=== PATIENT | male | born 1965 | race Caucasian/White ===

== ENCOUNTER 2020-08-29 13:43 | Emergency (ER) | payer MEDICARE ==
[~2020-08-29 13:43] MED LIST: ALPRAZOLAM0.5 MG PO; ASPIRIN81 MG PO; COREG 25MG TAB25 MG PO; ENTECAVIR0.5 MG PO; HYDRALAZINE HCL25 MG PO; IMDUR ER TAB 3030 MG PO; LASIX20 MG PO; LIPITOR TAB 2020 MG PO; LOMOTIL 2.5-0.1 EACH PO; NORCO 5-325 TA1 EACH PO; ZOFRAN4 MG PO
[2020-08-29] MEDS ORDERED: CYCLOBENZAPRINE10 MG PO (15:11)
== END 2020-08-29 15:34 | disposition home or self-care (01) ==
LOC: ER1 13:43
DX: S39.012A Strain of muscle, fascia and tendon of lower back, initial encounter (principal); I11.0 Hypertensive heart disease with heart failure; I50.9 Heart failure, unspecified; E78.00 Pure hypercholesterolemia, unspecified; Z85.038 Personal history of other malignant neoplasm of large intestine; Z79.899 Other long term (current) drug therapy; Z79.82 Long term (current) use of aspirin; F17.200 Nicotine dependence, unspecified, uncomplicated; Z88.8 Allergy status to other drugs, medicaments and biological substances; X50.0XXA Overexertion from strenuous movement or load, initial encounter
CPT/HCPCS: 72100; 81001; 82962; 99283

== ENCOUNTER 2021-03-23 10:44 | Inpatient (IN) | payer MEDICARE, MEDICAID ==
[~2021-03-23] VITALS: Ht 193 cm; Wt 113.1 kg
[~2021-03-23 10:44] MED LIST changes: +CYCLOBENZAPRINE10 MG PO; -HYDRALAZINE HCL25 MG PO; +HYDRALAZINE HCL50 MG PO; -IMDUR ER TAB 3030 MG PO; +ISOSORBIDE MONO60 MG PO
[2021-03-23 12:28] LABS: HEMOGLOBIN 16.8 gm/dl (14.0-17.5); RED BLOOD COUNT 5.3 M/UL (4.20-5.50); WHITE BLOOD COUNT 9.6 K/UL (4.5-11.0)
[2021-03-23 13:43] LABS: BUN/CREATININE RATIO 15 (0-10)
[2021-03-23] MEDS ORDERED: GABAPENTIN600 MG PO (14:45)
[2021-03-23] MEDS ORDERED: MIRTAZAPINE45 MG PO (14:46)
[2021-03-23] MEDS ORDERED: VITAMIN D21250 MCG PO (15:03)
[2021-03-24 04:48] LABS: HEMOGLOBIN 14.9 gm/dl (14.0-17.5)
[2021-03-24 04:49] LABS: RED BLOOD COUNT 4.74 M/UL (4.20-5.50)
[2021-03-24] MEDS ORDERED: METER-CHECK1 EACH MC (11:15)
[2021-03-24] MEDS ORDERED: LANTUS SOL100 UNIT/1 SQ (11:15)
[2021-03-24] MEDS ORDERED: ZESTRIL 40 MG T40 MG PO (11:15)
[2021-03-24] MEDS ORDERED: INSULIN AS100 UNIT/3 SQ (11:15)
[2021-03-24] MEDS ORDERED: GLUCOPHAGE 500500 MG PO (11:15)
== END 2021-03-24 17:20 | disposition home or self-care (01) | DRG 638 ==
LOC: ER1 10:44 → PROG CARE 14:33 → CDU 14:33 → PROG CARE 14:39
PROVIDERS: Physician Assistant; ADMIT Internal Medicine
DX: E11.65 Type 2 diabetes mellitus with hyperglycemia (principal); I13.0 Hypertensive heart and chronic kidney disease with heart failure and stage 1 through stage 4 chronic kidney disease, or unspecified chronic kidney disease; Z20.822 Contact with and (suspected) exposure to COVID-19; N17.9 Acute kidney failure, unspecified; N18.4 Chronic kidney disease, stage 4 (severe); E87.2 Acidosis; E11.649 Type 2 diabetes mellitus with hypoglycemia without coma; H53.8 Other visual disturbances; R63.1 Polydipsia; E78.5 Hyperlipidemia, unspecified; I50.9 Heart failure, unspecified; Z79.4 Long term (current) use of insulin; Z79.01 Long term (current) use of anticoagulants; Z79.82 Long term (current) use of aspirin; Z87.891 Personal history of nicotine dependence; Z90.49 Acquired absence of other specified parts of digestive tract
CPT/HCPCS: 36415; 80048; 80053; 81001; 82009; 82550; 82553; 82800; 82962; 83036; 83540; 83550; 83605; 83735; 83874; 83880; 84100; 84439; 84443; 84484; 85025; 85027; 85652; 86140; 87040; 87086; 93005; 96374; 99285; J1650; J7030; U0002